=== PATIENT | male | born 1960 | race Hispanic/Latino ===

== ENCOUNTER → 2023-02-03 | Outpatient (CLI) | payer MEDICARE, MEDICAID ==
[~2023-02-03] MED LIST: IOHEXOL 350 MG/ML 100ML INFUS..BTL IV ONE
== END | disposition home or self-care (01) ==
LOC: RAH 10:26
PROVIDERS: ATTEND Student in an Organized Health Care Education/Training Program
DX: I50.9 Heart failure, unspecified (principal)
CPT/HCPCS: 75574; Q9967